=== PATIENT | male | born 1970 | race African-American/Black ===

== ENCOUNTER 2016-06-08 12:26 | Emergency (ER) | payer BC ==
--- NOTE | 2016-06-08 12:37 | ER Document Report ---
ED Medical Screen (RME) - General Stated Complaint: HEAD ACHE Notes: patient is a 45 year old male with a headache and concern for high blood pressure. he doesnt know the name of his medication and hes been out of it for 2 weeks I have greeted and performed a rapid initial assessment of this patient. A comprehensive ED assessment and evaluation of the patient, analysis of test results and completion of the medical decision making process will be conducted by additional ED providers. TRAVEL OUTSIDE OF THE [place] IN LAST 30 DAYS: No - Related Data Allergies/Adverse Reactions: No Known Allergies Allergy (Verified 06/08/16 12:36) Past Medical History - Past Medical History Cardiac Medical History: Reports: Hx Hypertension - non-compliant - Immunizations Immunizations up to date: No Hx Diphtheria, Pertussis, Tetanus Vaccination: No Physical Exam - Vital signs Vitals: Temp Pulse Resp BP Pulse Ox 98.9 F 82 16 146/101 H 95 06/08/16 12:30 06/08/16 12:30 06/08/16 12:30 06/08/16 12:30 06/08/16 12:30 Course - Vital Signs Vital signs: Temp Pulse Resp BP Pulse Ox 98.9 F 82 16 146/101 H 95 06/08/16 12:30 06/08/16 12:30 06/08/16 12:30 06/08/16 12:30 06/08/16 12:30
[2016-06-08] MEDS ORDERED: ACETAMINOPHEN 325 MG TABLET PO ONE (12:40)
[2016-06-08] MEDS ORDERED: OXYCODONE HCL IR 5 MG TABLET PO ONE (13:27)
[2016-06-08] MEDS ORDERED: METOPROLOL TARTRATE 25 MG TABLET PO ONE (13:27)
[2016-06-08 13:41] LABS: URINE BARBITURATES SCREEN NEGATIVE; URINE METHADONE SCREEN NEGATIVE; URINE OPIATES LOW NEGATIVE; URINE PHENCYCLIDINE SCREEN NEGATIVE
--- NOTE | 2016-06-08 15:16 | ER Document Report ---
ED Headache - General Chief Complaint: Headache Stated Complaint: HEAD ACHE Mode of Arrival: Ambulatory Information source: Patient TRAVEL OUTSIDE OF THE [place] IN LAST 30 DAYS: No - Related Data Allergies/Adverse Reactions: No Known Allergies Allergy (Verified 06/08/16 12:36) Past Medical History - Social History Smoking Status: Current Every Day Smoker Chew tobacco use (# tins/day): No Frequency of alcohol use: Heavy Drug Abuse: Cocaine Family History: Reviewed & Not Pertinent Patient has suicidal ideation: No Patient has homicidal ideation: No - Past Medical History Cardiac Medical History: Reports: Hx Hypertension - non-compliant Renal/ Medical History: Denies: Hx Peritoneal Dialysis Surgical Hx: Negative - Immunizations Immunizations up to date: No Hx Diphtheria, Pertussis, Tetanus Vaccination: No Physical Exam - Vital signs Vitals: Temp Pulse Resp BP Pulse Ox 98.9 F 82 16 146/101 H 95 06/08/16 12:30 06/08/16 12:30 06/08/16 12:30 06/08/16 12:30 06/08/16 12:30 Course - Vital Signs Vital signs: Temp Pulse Resp BP Pulse Ox 98.9 F 82 16 130/92 H 95 06/08/16 12:30 06/08/16 12:30 06/08/16 13:46 06/08/16 15:08 06/08/16 12:30 Discharge - Discharge Clinical Impression: Essential hypertension, Headache around the eyes Condition: Stable Disposition: HOME, SELF-CARE Instructions: Headache ([facility]), High Blood Pressure, Requiring Treatment ([facility]), Beta Blockers ([facility]) Additional Instructions: TAKE LOPRESSOR DIRECTED. AVOID SALT IN YOUR DIET. FOLLOW UP WITH YOUR PRIMARY CARE PROVIDER FOR ON-GOING MANAGEMENT OF YOUR BLOOD PRESSURE. FOLLOW UP WITH [facility] WITH [facility] FOR HELP WITH SUBSTANCE ABUSE, DETOX, ETC. Prescriptions: Metoprolol Tartrate [Lopressor 25 mg Tablet] 25 mg PO DAILY #30 tab Referrals: REY DIGGS MD [Primary Care Provider] - Follow up as needed [facility] [Outside] - Follow up as needed [facility] [Outside] - Follow up as needed
[2016-06-08 15:38] VITALS: BP 124/89
== END 2016-06-08 15:22 | disposition home or self-care (01) ==
LOC: ER 12:26
DX: I10 Essential (primary) hypertension (principal); R51 Headache; F17.200 Nicotine dependence, unspecified, uncomplicated
CPT/HCPCS: 80307; 99284

== ENCOUNTER 2016-09-11 16:29 | Emergency (ER) | payer SELFPAY ==
[2016-09-11] MEDS ORDERED: KETOROLAC TROMETHAMINE INJ/PF 30 MG/1 ML SDV IV ONE (18:03)
[2016-09-11 18:43] LABS: ABSOLUTE BASOPHILS # (AUTO) 0.1 10^3/uL (0.0-0.2); ABSOLUTE EOSINOPHILS # (AUTO) 0.2 10^3/uL (0.0-0.6); ABSOLUTE LYMPHOCYTES (AUTO) 2.1 10^3/uL (0.5-4.7); ABSOLUTE NEUT (AUTO) 7.6 10^3/uL (1.7-8.2); BASOPHILS % (AUTO) 0.5 % (0-2); EOSINOPHILS % (AUTO) 1.5 % (0-6); HEMATOCRIT 41.4 % (37.9-51.0); HEMOGLOBIN 13.9 g/dL (13.5-17.0); HGB HCT DIFFERENCE 0.3; LYMPHOCYTES % (AUTO) 19.3 % (13-45); MEAN CORPUSCULAR HEMOGLOBIN 34.1 pg (27.0-33.4); MEAN CORPUSCULAR HGB CONC 33.5 g/dL (32.0-36.0); MEAN CORPUSCULAR VOLUME 102 fl (80-97); MONOCYTES % (AUTO) 8.8 % (3-13); RED BLOOD COUNT 4.07 10^6/uL (4.35-5.55); RED CELL DISTRIBUTION WIDTH 12.6 % (11.5-14.0); SEGMENTED NEUTROPHILS % (AUTO) 69.9 % (42-78); WHITE BLOOD COUNT 10.9 10^3/uL (4.0-10.5)
[2016-09-11 18:55] LABS: APPEARANCE,URINE SLIGHTLY-CLOUDY; BILIRUBIN,URINE NEGATIVE (NEGATIVE); GLUCOSE, URINE NEGATIVE (NEGATIVE); KETONES,URINE NEGATIVE (NEGATIVE); LEUKOCYTE ESTERASE,URINE LARGE (NEGATIVE); NITRITE,URINE NEGATIVE (NEGATIVE); PROTEIN,URINE 100 mg/dL (NEGATIVE); URINE SPECIFIC GRAVITY 1.008; UROBILINOGEN,URINE NEGATIVE mg/dL (<2.0)
[2016-09-11] MEDS ORDERED: NORMAL SALINE 1000 ML 1,000 ML IV ONE (19:27)
[2016-09-11] MEDS ORDERED: ONDANSETRON HCL INJ/PF 4 MG/2 ML SDV IV ONE (19:27)
--- NOTE | 2016-09-11 19:27 | ER Document Report ---
ED GI/ - General Mode of Arrival: Ambulatory Information source: Patient TRAVEL OUTSIDE OF THE [place] IN LAST 30 DAYS: No - HPI Patient complains to provider of: Flank pain Associated symptoms: Other - See above <TRACEE JAVIER - Last Filed: 09/11/16 19:35> <JESSICA WILLARD - Last Filed: 09/12/16 00:13> - General Chief Complaint: Flank Pain Stated Complaint: left flank pain Time Seen by Provider: 09/11/16 18:13 Notes: Patient is a 45 year old male, with a past medical history including hypertension, who presents to the emergency department complaining of left sided flank pain onset at around 1400 today. Patient reports today is his day off work and he has been lying down all morning, before the pain started patient had eaten some chicken and mashed potatoes followed by clam chowder and then walked around when it suddenly came on. Patient reports the pain started in his left lower back and has moved around his left side into his groin. Patient also complains of increased urination. Patient denies fever, vomiting, diarrhea, dysuria, testicular pain, penile discharge, and hematuria. (TRACEE JAVIER) - Related Data Allergies/Adverse Reactions: No Known Allergies Allergy (Verified 09/11/16 16:32) Past Medical History - General Information source: Patient - Social History Smoking Status: Current Every Day Smoker Chew tobacco use (# tins/day): No Frequency of alcohol use: Heavy Drug Abuse: Cocaine Family History: Reviewed & Not Pertinent Patient has suicidal ideation: No Patient has homicidal ideation: No - Past Medical History Cardiac Medical History: Reports: Hx Hypertension - non-compliant - Immunizations Immunizations up to date: No Hx Diphtheria, Pertussis, Tetanus Vaccination: No <TRACEE JAVIER - Last Filed: 09/11/16 19:35> Review of Systems - Review of Systems Constitutional: denies: Fever EENT: No symptoms reported Cardiovascular: No symptoms reported Respiratory: No symptoms reported Gastrointestinal: See HPI, Abdominal pain. denies: Diarrhea, Vomiting Genitourinary: See HPI, Frequency, Flank pain. denies: Dysuria, Hematuria Male Genitourinary: denies: Testicular pain, Penile discharge Musculoskeletal: No symptoms reported Skin: No symptoms reported Hematologic/Lymphatic: No symptoms reported Neurological/Psychological: No symptoms reported -: Yes All other systems reviewed and negative <TRACEE JAVIER - Last Filed: 09/11/16 19:35> Physical Exam <TRACEE JAVIER - Last Filed: 09/11/16 19:35> <JESSICA WILLARD - Last Filed: 09/12/16 00:13> - Vital signs Vitals: Temp Pulse Resp BP Pulse Ox 97.9 F 71 14 174/116 H 95 09/11/16 16:32 09/11/16 16:32 09/11/16 16:32 09/11/16 16:32 09/11/16 16:32 - Notes Notes: GENERAL: Alert, interacts well. No acute distress. HEAD: Normocephalic, atraumatic. EYES: Pupils equal, round, and reactive to light. Extraocular movements intact. ENT: Oral mucosa moist, tongue midline. NECK: Full range of motion. Supple. Trachea midline. LUNGS: Clear to auscultation bilaterally, no wheezes, rales, or rhonchi. No respiratory distress. HEART: Regular rate and rhythm. No murmurs, gallops, or rubs. ABDOMEN: Right upper quadrant, left lower quadrant, and epigastric tenderness to palpation. No periumbilical or suprapubic tenderness to palpation. Non- distended. Bowel sounds present in all 4 quadrants. EXTREMITIES: Moves all 4 extremities spontaneously. No edema. No cyanosis. BACK: No CVA tenderness to palpation. NEUROLOGICAL: Alert and oriented x3. Normal speech. PSYCH: Normal affect, normal mood. SKIN: Warm, dry, normal turgor. No rashes or lesions noted. (TRACEE JAVIER) Course - Laboratory Result Diagrams: 09/11/16 18:15 09/11/16 18:15 <TRACEE AJVIER - Last Filed: 09/11/16 19:35> - Laboratory Result Diagrams: 09/11/16 18:15 09/11/16 19:11 <JESSICA WILLARD - Last Filed: 09/12/16 00:13> - Re-evaluation Re-evalutation: 09/11/16 21:46 CBC shows slight leukocytosis of 10.9 otherwise unremarkable, CMP unremarkable, urinalysis shows large blood and large leukocyte esterase, 1+ bacteria, CT scan does not show any signs of stone, obstructing stone, hydronephrosis. Patient will be treated for pyelonephritis causing hematuria. Initial dose of Rocephin given here and discharged home on Keflex. (JESSICA WILLARD) - Vital Signs Vital signs: Temp Pulse Resp BP Pulse Ox 98.0 F 70 16 141/93 H 96 09/11/16 22:30 09/11/16 22:30 09/11/16 22:30 09/11/16 22:30 09/11/16 22:30 - Laboratory Laboratory results interpreted by me: 09/11/16 09/11/16 18:10 18:15 WBC 10.9 H RBC 4.07 L MCV 102 H MCH 34.1 H Urine Protein 100 H Urine Blood LARGE H Ur Leukocyte Esterase LARGE H Discharge <TRACEE JAVIER - Last Filed: 09/11/16 19:35> <JESSICA WILLARD - Last Filed: 09/12/16 00:13> - Discharge Clinical Impression: Pyelonephritis Hypertension Qualifiers: Hypertension type: essential hypertension Qualified Code(s): I10 - Essential ( primary) hypertension Condition: Stable Disposition: HOME, SELF-CARE Instructions: Pyelonephritis ([facility]) Prescriptions: Cephalexin Monohydrate [Keflex 500 mg Capsule] 500 mg PO QID #28 capsule Phenazopyridine HCl [Pyridium 200 mg Tablet] 200 mg PO TID #7 tablet Forms: Elevated Blood Pressure, Return to Work Scribe Attestation: 09/12/16 00:13 I personally performed the services described in the documentation, reviewed and edited the documentation which was dictated to the scribe in my presence, and it accurately records my words and actions. (JESSICA WILLARD) Scribe Documentation - Scribe Written by Reid:: reid Taylor, 09/11[birth year], 1935 acting as scribe for :: Kimberley <TRACEE JAVIER - Last Filed: 09/11/16 19:35>
[2016-09-11 19:32] LABS: ALANINE AMINOTRANSFERASE 35 U/L (21-72); ALBUMIN 4.2 g/dL (3.5-5.0); ALKALINE PHOSPHATASE 46 U/L (38-126); ANION GAP 12 (5-19); ASPARTATE AMINO TRANSFERASE 31 U/L (17-59); BILIRUBIN,DIRECT 0.3 mg/dL (0.0-0.4); BILIRUBIN,TOTAL 0.5 mg/dL (0.2-1.3); BLOOD UREA NITROGEN 15 mg/dL (7-20); CALCIUM 9.7 mg/dL (8.4-10.2); CARBON DIOXIDE 28 mmol/L (22-30); CHLORIDE 102 mmol/L (98-107); CREATININE RESULT 1.04 mg/dL (0.52-1.25); GLUCOSE 89 mg/dL (75-110); LIPASE 68.3 U/L (23-300); POTASSIUM 4.3 mmol/L (3.6-5.0); SODIUM 141.5 mmol/L (137-145); TOTAL PROTEIN 7.6 g/dL (6.3-8.2)
--- NOTE | 2016-09-11 21:11 | RADIOLOGY REPORT (SQ) ---
EXAM DESCRIPTION: CT LTD RENAL STONE PROTOCOL ON COMPLETED DATE/TIME: 09/11/2016 8:01 pm REASON FOR STUDY: infected urine COMPARISON: None. TECHNIQUE: CT scan of the abdomen and pelvis performed without intravenous or oral contrast. Images reviewed with lung, soft tissue, and bone windows. Reconstructed coronal and sagittal MPR images revi ewed. All images stored on PACS. All CT scanners at this facility use dose modulation, iterative reconstruction, and/or weight based d osing when appropriate to reduce radiation dose to as low as reasonably achievable (ALARA). [facility]: Dose Right [facility]: CareDose [facility]: Dose Right [facility]: Teradose 4D [facility]: HealthEngine RADIATION DOSE: 6.40mGy. LIMITATIONS: None. FINDINGS: LOWER CHEST: No significant findings. No nodules or infiltrates. NON-CONTRASTED LIVER, SPLEEN, ADRENALS: Evaluation limited by lack of IV contrast. No identified sign ificant masses. PANCREAS: No masses. No peripancreatic inflammatory changes. GALLBLADDER: Multiple small stones . No inflammatory changes to suggest cholecystitis. RIGHT KIDNEY AND URETER: No suspicious masses. Assessment limited by lack of IV contrast. No signif icant calcifications. No hydronephrosis or hydroureter. LEFT KIDNEY AND URETER: Small lower pole cyst. Assessment limited by lack of IV contrast. No signif icant calcifications. No hydronephrosis or hydroureter. AORTA AND RETROPERITONEUM: No aneurysm. No retroperitoneal masses or adenopathy. BOWEL AND PERITONEAL CAVITY: No obvious masses or inflammatory changes. No free fluid. APPENDIX: Normal. PELVIS, BLADDER, AND ABDOMINAL WALL:No abnormal masses. No free fluid. Bladder normal. BONES: No significant findings. OTHER: No other significant finding. IMPRESSION: NO ACUTE PROCESS IN THE ABDOMEN OR PELVIS. TECHNICAL DOCUMENTATION: JOB ID: [id number] Quality ID # [id number]: Final reports with documentation of one or more dose reduction techniques (e.g., Au tomated exposure control, adjustment of the mA and/or kV according to patient size, use of iterative reconstruction technique) 2010 [employer]- All Rights Reserved
[2016-09-11] MEDS ORDERED: PHENAZOPYRIDINE HCL 200 MG TABLET PO ONE (21:18)
[2016-09-11] MEDS ORDERED: CEFTRIAXONE 1 GM/D5W RTU 50 ML IV ONE (21:18)
[2016-09-11 22:42] VITALS: BP 141/93
== END 2016-09-11 22:30 | disposition home or self-care (01) ==
LOC: ER 16:29
DX: N12 Tubulo-interstitial nephritis, not specified as acute or chronic (principal); I10 Essential (primary) hypertension; R10.9 Unspecified abdominal pain; M54.5 Low back pain; F17.200 Nicotine dependence, unspecified, uncomplicated
CPT/HCPCS: 99284; 96361; 96374; 96375; 36415; 87086; 83690; 85025; 87088; 80053; 81001; 87186; 76380; J1885; J3490; J2405; J7030; J0696

== ENCOUNTER 2018-01-17 20:18 | Emergency (ER) | payer SELFPAY ==
[2018-01-17] MEDS ORDERED: HYDROCHLOROTHIAZIDE 25 MG TABLET PO ONE (20:25)
[2018-01-17] MEDS ORDERED: METOCLOPRAMIDE HCL INJ/PF 10 MG/2 ML SDV IV ONE (20:25)
--- NOTE | 2018-01-17 20:26 | ER Document Report ---
ED General - General Stated Complaint: HEADACHE Time Seen by Provider: 01/17/18 20:25 Notes: Patient is a 47-year-old male with past medical history of alcohol abuse, hypertension, currently off all medications who presents with a headache that started at approximately noon today. Describes it as a dull, throbbing, aching headache on the right side of his head. States the headache has gotten progressively worse since onset. Notes that lights and activity seem to worsen the headache. He has tried ibuprofen and Tylenol without any significant improvement. States that he has had similar headaches in the past although it has been several years. He does not have a primary care doctor. He denies any associated fever, neck pain, vomiting, confusion, weakness or numbness. No head trauma. TRAVEL OUTSIDE OF THE [place] IN LAST 30 DAYS: No - Related Data Allergies/Adverse Reactions: No Known Allergies Allergy (Verified 09/11/16 16:32) Past Medical History - General Information source: Patient - Social History Smoking Status: Current Every Day Smoker Frequency of alcohol use: Heavy Drug Abuse: None Lives with: Family Family History: Reviewed & Not Pertinent - Past Medical History Cardiac Medical History: Reports: Hx Hypertension - non-compliant Renal/ Medical History: Denies: Hx Peritoneal Dialysis - Immunizations Immunizations up to date: No Hx Diphtheria, Pertussis, Tetanus Vaccination: No Review of Systems - Review of Systems Notes: Constitutional: Negative for fever. HENT: Negative for sore throat. Eyes: Negative for visual changes. Cardiovascular: Negative for chest pain. Respiratory: Negative for shortness of breath. Gastrointestinal: Negative for abdominal pain, vomiting or diarrhea. Genitourinary: Negative for dysuria. Musculoskeletal: Negative for back pain. Skin: Negative for rash. Neurological: Positive for headache 10 point ROS negative except as marked above and in HPI. Physical Exam - Vital signs Vitals: Temp Pulse Resp BP Pulse Ox 98.9 F 77 20 168/111 H 98 01/17/18 20:38 01/17/18 20:38 01/17/18 20:38 01/17/18 20:38 01/17/18 20:38 Interpretation: Hypertensive Notes: PHYSICAL EXAMINATION: GENERAL: Well-appearing, well-nourished and in no acute distress. HEAD: Atraumatic, normocephalic. EYES: Pupils equal round and reactive to light, extraocular movements intact, sclera anicteric, conjunctiva are normal. ENT: nares patent, oropharynx clear without exudates. Moist mucous membranes. NECK: Normal range of motion, supple without lymphadenopathy LUNGS: Breath sounds clear to auscultation bilaterally and equal. No wheezes rales or rhonchi. HEART: Regular rate and rhythm without murmurs ABDOMEN: Soft, nontender, normoactive bowel sounds. No guarding, no rebound. No masses appreciated. EXTREMITIES: Normal range of motion, no pitting or edema. No cyanosis. NEUROLOGICAL: Face symmetric. Tongue protrudes midline. Extraocular motions intact. Pupils are 2 mm and equally reactive. Normal speech, normal gait. 5 out of 5 strength in both the distal and proximal upper and lower extremities bilaterally. Sensation is grossly intact throughout. Finger to nose testing normal. Pronator drift normal. PSYCH: Normal mood, normal affect. SKIN: Warm, Dry, normal turgor, no rashes or lesions noted. Course - Re-evaluation Re-evalutation: 01/17/18 20:26 Presentation of a headache that appears to be most consistent with tension versus migrainous type headache. Headache was not maximal in onset, patient has no focal neurologic deficits, no nuchal rigidity, vital signs within normal limits, no papilledema, and patient is overall well in appearance. Based on clinical history and examination I do not suspect an acute subarachnoid hemorrhage, dural venous sinus thrombosis, acute meningitis, or intercranial mass. Given my low clinical suspicion for any acute life-threatening etiology, I do not feel advanced neuro imaging or laboratory testing is indicated at this time. Will proceed with headache cocktail and reassess. 01/17/18 21:03 Patient has had resolution of his headache after receiving metoclopramide. He will go home on a prescription of hydrochlorthiazide for his untreated essential hypertension. No indication for labs or imaging. Repeat neuro exam remains unremarkable. At this time will discharge with return precautions and follow-up recommendations. Verbal discharge instructions given a the bedside and opportunity for questions given. Medication warnings reviewed. Patient is in agreement with this plan and has verbalized understanding of return precautions and the need for primary care follow-up in the next 24-72 hours. - Vital Signs Vital signs: Temp Pulse Resp BP Pulse Ox 98.9 F 77 20 168/111 H 98 01/17/18 20:38 01/17/18 20:38 01/17/18 20:38 01/17/18 20:38 01/17/18 20:38 Discharge - Discharge Clinical Impression: Essential hypertension Acute headache Qualifiers: Headache type: unspecified Intractability: not intractable Qualified Code(s): R51 - Headache Condition: Good Disposition: HOME, SELF-CARE Additional Instructions: You were seen today for blood pressure that was high. This is a long-term risk factor for multiple medical problems including heart attack and stroke. However, the blood pressure in of itself will not cause you to have an acute stroke or heart attack over the course of just several days or weeks. You need to have a gradual reduction of your blood pressure back to normal levels over the next several months in conjunction with your primary care physician. Return if you develop headache, weakness, numbness, chest pain, pass out, or have any other symptoms that are concerning to you. You have been seen in the Emergency Department (ED) for a headache. Please use Tylenol (acetaminophen) or Motrin (ibuprofen) as needed for symptoms, but only as written on the box. As we have discussed, please follow up with your primary care doctor as soon as possible regarding today's ED visit and your headache symptoms. Call your doctor or return to the ED if you have a worsening headache, sudden and severe headache, confusion, slurred speech, facial droop, weakness or numbness in any arm or leg, extreme fatigue, or other symptoms that concern you. Prescriptions: Hydrochlorothiazide 25 mg PO DAILY #30 tablet
[2018-01-17 21:27] VITALS: BP 154/98
== END 2018-01-17 21:27 | disposition home or self-care (01) ==
LOC: ER 20:18
DX: I10 Essential (primary) hypertension (principal); R51 Headache; F17.200 Nicotine dependence, unspecified, uncomplicated
CPT/HCPCS: 99284; 96374; J2765

== ENCOUNTER 2019-01-19 17:58 | Emergency (ER) | payer SELFPAY ==
--- NOTE | 2019-01-19 18:11 | ER Document Report ---
ED Medical Screen (RME) - General Chief Complaint: Abdominal Pain Stated Complaint: LOWER ABDOMINAL PAIN/FOOT PAIN Time Seen by Provider: 01/19/19 18:06 Primary Care Provider: REY DIGGS MD [Primary Care Provider] - Follow up as needed Mode of Arrival: Ambulatory Information source: Patient Notes: This 48-year-old male with history of high blood pressure presents to the emergency department with complaints of right lower quad abdominal pain that started on Friday. Reports he is eating drinking voiding without problems. last bowel movement was yesterday. Denies fever vomiting diarrhea. Reports it does not hurt when he walks. Patient also has a history of EtOH tobacco use and marijuana and cocaine. Patient blood pressure extremely high. Reports he used to take hydrochlorothiazide but after 1 prescription he lost his insurance and never followed up.anymore medication. Right lower quad tender to palpate. I have greeted and performed a rapid initial assessment of this patient. A comprehensive ED assessment and evaluation of the patient, analysis of test results and completion of the medical decision making process will be conducted by additional ED providers. Dictation of this chart was performed using voice recognition software; therefore, there may be some unintended grammatical errors. TRAVEL OUTSIDE OF THE [place] IN LAST 30 DAYS: No - Related Data Allergies/Adverse Reactions: No Known Allergies Allergy (Verified 09/11/16 16:32) Past Medical History - Past Medical History Cardiac Medical History: Reports: Hx Hypertension - non-compliant Renal/ Medical History: Denies: Hx Peritoneal Dialysis - Immunizations Immunizations up to date: No Hx Diphtheria, Pertussis, Tetanus Vaccination: No Doctor's Discharge - Discharge Referrals: REY DIGGS MD [Primary Care Provider] - Follow up as needed
[2019-01-19 18:38] LABS: ABSOLUTE EOSINOPHILS # (AUTO) 0.1 10^3/uL (0.0-0.6); ABSOLUTE MONOCYTES (AUTO) 0.6 10^3/uL (0.1-1.4); MEAN CORPUSCULAR VOLUME 102 fl (80-97); TOTAL CELLS COUNTED % (AUTO) 100 %
[2019-01-19 18:49] LABS: ABSOLUTE LYMPHOCYTES (AUTO) 2.1 10^3/uL (0.5-4.7); ABSOLUTE NEUT (AUTO) 2.4 10^3/uL (1.7-8.2); BASOPHILS % (AUTO) 0.7 % (0-2); EOSINOPHILS % (AUTO) 2.1 % (0-6); HEMATOCRIT 40.8 % (37.9-51.0); HEMOGLOBIN 13.9 g/dL (13.5-17.0); LYMPHOCYTES % (AUTO) 39.8 % (13-45); MEAN CORPUSCULAR HEMOGLOBIN 34.7 pg (27.0-33.4); MONOCYTES % (AUTO) 11.9 % (3-13); PLATELET COUNT 277 10^3/uL (150-450); RED CELL DISTRIBUTION WIDTH 13.3 % (11.5-14.0); SEGMENTED NEUTROPHILS % (AUTO) 45.5 % (42-78); WHITE BLOOD COUNT 5.2 10^3/uL (4.0-10.5)
[2019-01-19 19:02] LABS: ALBUMIN 4.4 g/dL (3.5-5.0); ALKALINE PHOSPHATASE 42 U/L (38-126); ANION GAP 10 (5-19); ASPARTATE AMINO TRANSFERASE 22 U/L (17-59); BILIRUBIN,DIRECT 0.1 mg/dL (0.0-0.4); BILIRUBIN,TOTAL 0.4 mg/dL (0.2-1.3); BLOOD UREA NITROGEN 16 mg/dL (7-20); CALCIUM 9.1 mg/dL (8.4-10.2); CARBON DIOXIDE 25 mmol/L (22-30); CHLORIDE 104 mmol/L (98-107); GLUCOSE 98 mg/dL (75-110); POTASSIUM 4.4 mmol/L (3.6-5.0); TOTAL PROTEIN 7.6 g/dL (6.3-8.2)
[2019-01-19 19:06] LABS: APPEARANCE,URINE CLEAR; BILIRUBIN,URINE NEGATIVE (NEGATIVE); COLOR,URINE YELLOW; GLUCOSE, URINE NEGATIVE (NEGATIVE); KETONES,URINE NEGATIVE (NEGATIVE); LEUKOCYTE ESTERASE,URINE TRACE (NEGATIVE); NITRITE,URINE NEGATIVE (NEGATIVE); PROTEIN,URINE NEGATIVE (NEGATIVE); UROBILINOGEN,URINE NEGATIVE mg/dL (<2.0)
--- NOTE | 2019-01-19 19:25 | ER Document Report ---
ED GI/ - General Chief Complaint: Abdominal Pain Stated Complaint: LOWER ABDOMINAL PAIN/FOOT PAIN Time Seen by Provider: 01/19/19 19:25 Primary Care Provider: [facility] [Provider Group] - Follow up as needed REY DIGGS MD [ACTIVE STAFF] - Follow up as needed Mode of Arrival: Ambulatory Information source: Patient Notes: HISTORY OF PRESENT ILLNESS: Patient is a 48-year-old male with a past medical history of hypertension who presents with right lower abdominal pain the patient reports began 2 days ago after work. 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 Location: Right lower abdomen Onset: Yesterday Alleviation: None Provocation: Movement Quality: Aching Radiation: None Severity: Mild Timing: Constant History of abdominal surgery: None Associated symptoms: Denies nausea or vomiting, no diarrhea or constipation, no hematuria or dysuria Last bowel movement: Today and normal REVIEW OF SYSTEMS: CONSTITUTIONAL : Denies fever or chills, no sweats. Denies recent illness. EENT: Denies eye, ear, throat, or mouth pain or symptoms. Denies nasal or sinus congestion. CARDIOVASCULAR: Denies chest pain. Denies swelling of the legs. RESPIRATORY: Denies cough, cold, or chest congestion. Denies shortness of breath or difficulty breathing. Denies wheezing. GASTROINTESTINAL: Positive for abdominal pain. Denies nausea, vomiting, or diarrhea. Denies constipation. GENITOURINARY: Denies difficulty urinating, painful urination, burning, frequency, or blood in urine. FEMALE GENITOURINARY: Denies vaginal bleeding, abnormal or irregular periods. MUSCULOSKELETAL: Denies neck or back pain or joint pain or swelling. SKIN: Denies rash or skin lesions. HEMATOLOGIC : Denies easy bruising or bleeding. LYMPHATIC: Denies swollen, enlarged glands. NEUROLOGICAL: Denies altered mental status or loss of consciousness. Denies headache. Denies weakness or paralysis or loss of use of either side. Denies problems with gait or speech. Denies sensory or motor loss. PSYCHIATRIC: Denies anxiety or stress or depression. All other systems reviewed and negative. PHYSICAL EXAMINATION: GENERAL: Well-appearing, well-nourished and in no acute distress. HEAD: Atraumatic, normocephalic. No scalp deformity, depression, or crepitance. EYES: Pupils are 3 mm and equal/round/reactive to light, extraocular movements intact, sclera anicteric, conjunctiva are normal. ENT: Nares patent bilaterally, oropharynx. Moist mucous membranes. No tonsil hypertrophy. NECK: Normal range of motion, supple without lymphadenopathy. LUNGS: Breath sounds present, equal, and clear to auscultation bilaterally. No wheezes, rales, or rhonchi. HEART: Regular rate and rhythm without murmurs, rubs, or gallops. 2+ peripheral pulses. Normal capillary refill. ABDOMEN: Soft, nontender, nondistended. Normoactive bowel sounds. No guarding, no rebound. No masses appreciated. BACK: Normal contour, no midline tenderness. Rectal exam deferred. GENITAL/PELVIC: Deferred. EXTREMITIES: Normal range of motion, no pitting or edema. No cyanosis. NEUROLOGICAL: No focal neurological deficits. Moves all extremities spontaneously and on command. PSYCH: Normal mood, normal affect. No suicidal thoughts/ideations. No homicidal thoughts/ideations. No hallucinations. SKIN: Warm, dry, normal turgor, no rashes or lesions noted. ASSESSMENT AND PLAN: This patient is a 48-year-old male who presents with right lower quadrant abdominal pain that began after working the whole weekend. Exam shows patient to be completely benign appearing, no pain was elicited on palpation to the right lower quadrant during exam. Most likely etiology is muscle strain given his recent increase in work. 1. Will obtain labs, urine, and reassess. 2. Will give intramuscular Toradol for pain control. TRAVEL OUTSIDE OF THE [place] IN LAST 30 DAYS: No - HPI Patient complains to provider of: Abdominal pain Onset: Last week Timing/Duration: Sudden Quality of pain: Achy Severity at maximum: Mild Severity in ED: None Pain Level: Denies Context: Lifting Location: RLQ Sexual history: Active Associated symptoms: None Exacerbated by: Movement Relieved by: Denies Similar symptoms previously: No Recently seen / treated by doctor: No - Related Data Allergies/Adverse Reactions: No Known Allergies Allergy (Verified 09/11/16 16:32) Past Medical History - General Information source: Patient - Social History Smoking Status: Current Every Day Smoker Chew tobacco use (# tins/day): No Frequency of alcohol use: Social Drug Abuse: Cocaine, Marijuana Lives with: Alone Family History: Reviewed & Not Pertinent Patient has suicidal ideation: No Patient has homicidal ideation: No - Past Medical History Cardiac Medical History: Reports: Hx Hypertension - non-compliant Pulmonary Medical History: Reports: None EENT Medical History: Reports: None Neurological Medical History: Reports: None Endocrine Medical History: Reports: None Renal/ Medical History: Reports: None. Denies: Hx Peritoneal Dialysis Malignancy Medical History: Reports None GI Medical History: Reports: None Musculoskeletal Medical History: Reports None Skin Medical History: Reports None Psychiatric Medical History: Reports: None Traumatic Medical History: Reports: None Infectious Medical History: Reports: None Surgical Hx: Negative Past Surgical History: Reports: None - Immunizations Immunizations up to date: No Hx Diphtheria, Pertussis, Tetanus Vaccination: No Review of Systems - Review of Systems Constitutional: No symptoms reported EENT: No symptoms reported Cardiovascular: No symptoms reported Respiratory: No symptoms reported Gastrointestinal: No symptoms reported Genitourinary: No symptoms reported Male Genitourinary: No symptoms reported Musculoskeletal: See HPI, Muscle pain Skin: No symptoms reported Hematologic/Lymphatic: No symptoms reported Neurological/Psychological: No symptoms reported -: Yes All other systems reviewed and negative Physical Exam - Vital signs Vitals: Temp Pulse Resp BP Pulse Ox 98.2 F 85 16 166/114 H 96 01/19/19 18:03 01/19/19 18:03 01/19/19 18:03 01/19/19 18:03 01/19/19 18:03 Interpretation: Normal Course - Vital Signs Vital signs: Temp Pulse Resp BP Pulse Ox 98.1 F 80 16 158/84 H 99 01/19/19 20:16 01/19/19 20:16 01/19/19 20:16 01/19/19 20:16 01/19/19 20:16 - Laboratory Result Diagrams: 01/19/19 18:18 01/19/19 18:18 Laboratory results interpreted by me: 01/19/19 01/19/19 18:18 18:18 RBC 4.00 L MCV 102 H MCH 34.7 H Ur Leukocyte Esterase TRACE H - Diagnostic Test Radiology results interpreted by me: 01/19/19 20:27 Will discharge the patient home with strict return precautions and follow-up with primary care. All results were explained to and discussed with the patient, and all questions addressed and answered. The patient voices both understanding and agreeing with the plan. Discharge - Discharge Clinical Impression: Muscle strain Condition: Good Disposition: HOME, SELF-CARE Instructions: Family Physicians / Practices, Muscle Strain ([facility]) Additional Instructions: You have been evaluated in the Emergency Department for a muscle strain in the lower abdomen. While here, you had blood work that was normal and it is now safe to be discharged home. Please follow-up with your primary physician as instructed in one week to be rechecked. Return to the Emergency Department if you experience worsening pain, nausea, or any other concerning symptoms. Prescriptions: Hydrochlorothiazide [Hydrodiuril 25 mg Tablet] 25 mg PO QAM #30 tablet Naproxen Sodium 220 mg PO BID #10 capsule Referrals: REY DIGGS MD [ACTIVE STAFF] - Follow up as needed [facility] [Provider Group] - Follow up as needed Print Language: Swedish
[2019-01-19] MEDS ORDERED: KETOROLAC TROMETHAMINE 60 MG/2 ML SDV IM ONE (20:06)
[2019-01-19 20:17] VITALS: BP 158/84
== END 2019-01-19 20:37 | disposition home or self-care (01) ==
LOC: ER 17:58
DX: S39.011A Strain of muscle, fascia and tendon of abdomen, initial encounter (principal); X58.XXXA Exposure to other specified factors, initial encounter; I10 Essential (primary) hypertension
CPT/HCPCS: 99284; 96374; 36415; 83690; 85025; 80053; 81001; J1885